=== PATIENT | male | born 1975 | race Caucasian/White ===

== ENCOUNTER 2021-11-07 01:02 | Emergency (ER) | payer BC ==
[~2021-11-07] VITALS: Ht 182.9 cm; Wt 101.6 kg
[2021-11-07] MEDS ORDERED: ZYRTEC10 M2 PO (01:22)
[2021-11-07 01:44] LABS: HEMOGLOBIN 15.4 gm/dL (14.0-18.0); MPV 10.3 fl. (7.2-11.1); NUCLEATED RBCS 0 /100WBC; RDW-CV 13.7 % (10.5-14.5)
[2021-11-07 01:52] LABS: CALCIUM 8.2 mg/dL (8.5-10.1); CREATININE 1.2 mg/dL (0.6-1.3); POTASSIUM 3.7 mmol/L (3.5-5.1)
[2021-11-07 01:58] LABS: HEMATOCRIT 44.3 % (42.0-52.0); MCH 31.5 pg (26.0-34.0); MCHC 34.8 g/dL (28.0-37.0); MCV 90.4 fL (80.0-100.0); PLATELET COUNT* 133 thou/uL (150-400); RBC 4.91 mil/uL (4.50-6.00); WBC 6.6 thou/uL (4.0-11.0)
[2021-11-07 03:10] LABS: ABSOLUTE BASOPHILS 0.1 thou/uL (0.0-0.2); ABSOLUTE EOSINOPHILS 0.1 thou/uL (0.0-0.7); ABSOLUTE LYMPHOCYTES 2.2 thou/uL (0.8-5.3); ABSOLUTE MONOCYTES 0.3 thou/uL (0.0-1.2); ABSOLUTE NEUTROPHILS 3.8 thou/uL (1.6-8.1); PLATELET ESTIMATE DECREASED
[2021-11-07] MEDS ORDERED: IMITREX6 MG/0.5 M SUBQ (03:21)
[2021-11-07 03:52] VITALS: BP 164/78
== END 2021-11-07 03:53 | disposition home or self-care (01) ==
LOC: M.ERS 01:02
PROVIDERS: Emergency Medicine
DX: R51.9 Headache, unspecified (principal); I10 Essential (primary) hypertension; F17.210 Nicotine dependence, cigarettes, uncomplicated